=== PATIENT | female | born 2005 | race Caucasian/White ===

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

== ENCOUNTER → 2024-05-17 | Outpatient (CLI) | payer OTHER ==
[~2024-05-17] MED LIST changes: +IBUP-1022 PO; +METH-1164 PO; +ONDA-282 PO; -ONDA4TAB6 PO
[2024-05-17 15:40] LABS: BASO % 0.3 % (0.0-1.0); EOS # 0.3 10^3/uL (0.0-0.5); EOS % 3.6 % (0.0-3.0); HEMATOCRIT 41.6 % (36.0-47.0); HEMOGLOBIN 13.1 g/dl (12.0-15.5); LYMPH # 2.4 10^3/uL (1.5-5.0); LYMPH % 26.9 % (24.0-44.0); MEAN CORPUSCULAR HEMOGLOBIN 28.7 pg (27.0-33.0); MEAN CORPUSCULAR HGB CONC 31.5 g/dl (32.0-36.5); MONO # 0.8 10^3/uL (0.0-0.8); MONO % 8.9 % (2.0-8.0); NEUTROPHILS # 5.2 10^3/uL (1.5-8.5); PLATELET COUNT, AUTOMATED 258 10^3/uL (150-450); RED BLOOD COUNT 4.57 10^6/uL (4.00-5.40); WHITE BLOOD COUNT 8.7 10^3/uL (4.0-10.0)
[2024-05-17 16:12] LABS: FREE T4 1.02 NG/DL (0.83-1.43); THYROID STIMULATING HORMONE 0.352 uIU/ML (0.48-4.17)
== END ==
LOC: M PLALAB 13:59
PROVIDERS: ATTEND Nurse Practitioner Family
DX: N92.0 Excessive and frequent menstruation with regular cycle (principal); N94.10 Unspecified dyspareunia

== ENCOUNTER 2024-06-08 18:48 | Emergency (ER) | payer OTHER ==
[~2024-06-08] VITALS: Ht 162.6 cm; Wt 83.1 kg
[2024-06-08] MEDS ORDERED: LEXA5TAB13 PO (18:59)
[2024-06-08 20:21] LABS: BASO % 0.4 % (0.0-1.0); EOS # 0.3 10^3/uL (0.0-0.5); EOS % 2.8 % (0.0-3.0); HEMATOCRIT 40.1 % (36.0-47.0); HEMOGLOBIN 13.2 g/dl (12.0-15.5); LYMPH # 2.8 10^3/uL (1.5-5.0); LYMPH % 26.4 % (24.0-44.0); MEAN CORPUSCULAR HEMOGLOBIN 29.7 pg (27.0-33.0); MEAN CORPUSCULAR HGB CONC 32.9 g/dl (32.0-36.5); MEAN CORPUSCULAR VOLUME 90.1 fl (80.0-96.0); MONO # 0.8 10^3/uL (0.0-0.8); NEUTROPHILS # 6.5 10^3/uL (1.5-8.5); PLATELET COUNT, AUTOMATED 273 10^3/uL (150-450); RED BLOOD COUNT 4.45 10^6/uL (4.00-5.40); WHITE BLOOD COUNT 10.5 10^3/uL (4.0-10.0)
[2024-06-08 20:49] LABS: HCG, SERUM QUALITATIVE NEGATIVE (NEGATIVE)
[2024-06-08 20:50] LABS: LIPASE 29 U/L (12-53)
[2024-06-08 20:52] LABS: ALBUMIN 4.4 G/DL (3.2-5.2); ALKALINE PHOSPHATASE 87 U/L (46-116); ALT/SGPT 19 U/L (7.0-40); AST/SGOT 13 U/L (<34); BILIRUBIN,DIRECT 0.1 MG/DL (<0.4); BILIRUBIN,TOTAL 0.4 MG/DL (0.3-1.2); BLOOD UREA NITROGEN 13 MG/DL (9-23); CALCIUM LEVEL 9.2 MG/DL (8.5-10.1); CARBON DIOXIDE LEVEL 23 MMOL/L (20-31); CHLORIDE LEVEL 108 MMOL/L (98-107); CREATININE FOR GFR 0.67 MG/DL (0.55-1.30); GLUCOSE, FASTING 88 MG/DL (60-100); POTASSIUM SERUM 3.5 MMOL/L (3.5-5.1); SODIUM LEVEL 139 MMOL/L (136-145); TOTAL PROTEIN 7.2 G/DL (5.7-8.2)
[2024-06-08 20:53] VITALS: BP 138/64; TEMP 97.2; O2SAT 100
[2024-06-08 21:24] LABS: Trichomonas vaginalis (AMP) NOT DETECTED (NEGATIVE)
[2024-06-08 21:48] LABS: GC DNA AMPLIFICATION NEGATIVE (NEGATIVE)
[2024-06-08] MEDS ORDERED: IBUP200C25 PO (23:09)
[2024-06-08] MEDS ORDERED: B-12100021 PO (23:09)
[2024-06-08] MEDS ORDERED: NARA2.5T PO (23:09)
[2024-06-08] MEDS ORDERED: BIOT1CAP2 PO (23:09)
[2024-06-08] MEDS ORDERED: MULT-90 PO (23:09)
[2024-06-08] MEDS ORDERED: HOME MED LIST COMPLETE! XX SCH (23:10)
[2024-06-08] MEDS ORDERED: ISOVUE-370 76% 100ML VIAL As Ordered ONE (23:40)
[2024-06-09] MEDS: KETOROLAC 30 MG/ML 1ML VIAL IV ONE (00:26)
[2024-06-09] MEDS ORDERED: MIRA3350 PO (01:30)
== END 2024-06-09 02:09 | disposition home or self-care (01) ==
LOC: M ED 18:48
DX: K59.00 Constipation, unspecified (principal); E07.9 Disorder of thyroid, unspecified; Z79.899 Other long term (current) drug therapy
CPT/HCPCS: 74177; 76856; 80048; 80076; 81001; 83690; 84703; 85025; 87661; 87810; 87850; 93976; 96374; 99284; J1885; Q9967

== ENCOUNTER → 2024-06-13 | Outpatient (CLI) | payer OTHER ==
[~2024-06-13] MED LIST changes: +B-12100021 PO; +BIOT1CAP2 PO; +IBUP200C25 PO; +LEXA5TAB13 PO; +MIRA3350 PO; +MULT-90 PO; +NARA2.5T PO
== END ==
LOC: M RAD 11:15
PROVIDERS: ATTEND Nurse Practitioner Family
DX: N92.0 Excessive and frequent menstruation with regular cycle (principal); N94.6 Dysmenorrhea, unspecified

== ENCOUNTER 2024-12-13 18:42 | Emergency (ER) | payer OTHER ==
[~2024-12-13] VITALS: Ht 160 cm; Wt 88.6 kg
[2024-12-13 20:46] VITALS: BP 118/62; TEMP 98; O2SAT 100
== END 2024-12-13 20:48 | disposition home or self-care (01) ==
LOC: M ED 18:42
DX: S60.222A Contusion of left hand, initial encounter (principal); W23.0XXA Caught, crushed, jammed, or pinched between moving objects, initial encounter; Y92.009 Unspecified place in unspecified non-institutional (private) residence as the place of occurrence of the external cause; Y93.9 Activity, unspecified; Y99.9 Unspecified external cause status; G43.909 Migraine, unspecified, not intractable, without status migrainosus

== ENCOUNTER → 2025-06-06 | Outpatient (REF) | payer OTHER ==
[~2025-06-06] MED LIST changes: +TOPI-256 PO; -TOPI25TA10 PO
== END ==
LOC: M SFHCWAGY 11:38
PROVIDERS: ATTEND Nurse Practitioner Family
DX: Z12.4 Encounter for screening for malignant neoplasm of cervix (principal)

== ENCOUNTER → 2025-09-11 | Outpatient (REF) | payer OTHER ==
[~2025-09-11] MED LIST changes: -IBUP-1022 PO; +IBUP600T42 PO
[2025-09-11 22:30] LABS: APPEARANCE, URINE HAZY (CLEAR); BACTERIA, URINE AUTO NEGATIVE (NEGATIVE); BILIRUBIN, URINE AUTO NEGATIVE (NEGATIVE); BLOOD, URINE BLOOD NEGATIVE (NEGATIVE); GLUCOSE, URINE (UA) AUTO NEGATIVE (NEGATIVE); KETONE, URINE AUTO NEGATIVE (NEGATIVE); LEUKOCYTE ESTERASE, URINE AUTO NEGATIVE (NEGATIVE); MUCUS, URINE SMALL (NEGATIVE); NITRITE, URINE AUTO NEGATIVE (NEGATIVE); PROTEIN, URINE AUTO NEGATIVE (NEGATIVE); RBC, URINE AUTO 1 /HPF (0-3); SPECIFIC GRAVITY URINE AUTO 1.034 (1.002-1.035); SQUAMOUS EPITHELIAL CELL UR AU 4 /HPF (0-6); UROBILINOGEN, URINE AUTO 0.2 mg/dL (0.0-2.0); WBC, URINE AUTO 1 /HPF (0-3)
== END ==
LOC: M LAB REF 21:09
PROVIDERS: ATTEND Physician Assistant
DX: N39.0 Urinary tract infection, site not specified (principal)